=== PATIENT | female | born 1995 | race American Indian/Alaskan Native ===

== ENCOUNTER 2020-06-28 09:51 | Outpatient (CLI) | payer BC ==
[2020-06-28] MEDS ORDERED: LIDOCAINE (1%) 10 MG/1 ML VIAL 20 ML MDV ONE (12:17)
--- NOTE | 2020-06-28 14:26 | Ultrasound Report ---
Procedure: Ultrasound-guided right breast nodule biopsy x2 Clinical information/indication: Patient has 2 separate right breast nodules, one at the 11:00 positi on of the other near the 1:00 position, here for biopsy and clip placement Comparison: Right breast ultrasound from 06/19/2020 Procedure: The benefits, indications and risks were discussed with the patient including but not limi ally to bleeding, infection, hematoma formation, and inadequate tissue sampling. The patient agreed to proceed with both verbal and written consent. A timeout procedure was performed using 2 patient iden tifiers. The breast was prepped and draped in the usual sterile fashion. Lidocaine with and without epinephrin e were used for local anesthesia. Under direct ultrasound guidance, multiple core samples were obtain ed of each of the 2 separate breast nodules, one of which was at 11:00 and the other at 1:00. Biopsy markers were then placed. Biopsy device from each site was removed and hemostasis achieved with manua l pressure. A sterile dressing was applied to the skin. The patient tolerated the procedure without difficulty. No complications were encountered. Specimens were sent to pathology. The patient was then sent for a limited mammogram to confirm clip placement. IMPRESSION: 1. Technically successful right-sided breast biopsy of 2 separate nodules. 2. Post-procedure mammogram demonstrates satisfactory clip placement. An addendum will be issued once pathology returns on this procedure. Signer Name: Mayur José MD Signed: 06/28/2020 2:21 PM Workstation Name: [id number]
--- NOTE | 2020-06-29 07:31 | Ultrasound Report ---
Procedure: Ultrasound-guided right breast nodule biopsy x2 Clinical information/indication: Patient has 2 separate right breast nodules, one at the 11:00 positi on of the other near the 1:00 position, here for biopsy and clip placement Comparison: Right breast ultrasound from 06/19/2020 Procedure: The benefits, indications and risks were discussed with the patient including but not limi ally to bleeding, infection, hematoma formation, and inadequate tissue sampling. The patient agreed to proceed with both verbal and written consent. A timeout procedure was performed using 2 patient iden tifiers. The breast was prepped and draped in the usual sterile fashion. Lidocaine with and without epinephrin e were used for local anesthesia. Under direct ultrasound guidance, multiple core samples were obtain ed of each of the 2 separate breast nodules, one of which was at 11:00 and the other at 1:00. Biopsy markers were then placed. Biopsy device from each site was removed and hemostasis achieved with manua l pressure. A sterile dressing was applied to the skin. The patient tolerated the procedure without difficulty. No complications were encountered. Specimens were sent to pathology. The patient was then sent for a limited mammogram to confirm clip placement. IMPRESSION: 1. Technically successful right-sided breast biopsy of 2 separate nodules. 2. Post-procedure mammogram demonstrates satisfactory clip placement. An addendum will be issued once pathology returns on this procedure. Signer Name: Mayur José MD Signed: 06/28/2020 2:21 PM Workstation Name: [id number] Procedure: Ultrasound-guided right breast nodule biopsy x2 Clinical information/indication: Patient has 2 separate right breast nodules, one at the 11:00 positi on of the other near the 1:00 position, here for biopsy and clip placement Comparison: Right breast ultrasound from 06/19/2020 Procedure: The benefits, indications and risks were discussed with the patient including but not limi ally to bleeding, infection, hematoma formation, and inadequate tissue sampling. The patient agreed to proceed with both verbal and written consent. A timeout procedure was performed using 2 patient iden tifiers. The breast was prepped and draped in the usual sterile fashion. Lidocaine with and without epinephrin e were used for local anesthesia. Under direct ultrasound guidance, multiple core samples were obtain ed of each of the 2 separate breast nodules, one of which was at 11:00 and the other at 1:00. Biopsy markers were then placed. Biopsy device from each site was removed and hemostasis achieved with manua l pressure. A sterile dressing was applied to the skin. The patient tolerated the procedure without difficulty. No complications were encountered. Specimens were sent to pathology. The patient was then sent for a limited mammogram to confirm clip placement. IMPRESSION: 1. Technically successful right-sided breast biopsy of 2 separate nodules. 2. Post-procedure mammogram demonstrates satisfactory clip placement. An addendum will be issued once pathology returns on this procedure. Signer Name: Mayur José MD Signed: 06/29/2020 7:26 AM Workstation Name: [id number]
== END 2020-06-28 09:52 | disposition home or self-care (01) ==
LOC: US 09:51
PROVIDERS: ATTEND Surgery
DX: N63.11 Unspecified lump in the right breast, upper outer quadrant (principal); N63.12 Unspecified lump in the right breast, upper inner quadrant; R92.8 Other abnormal and inconclusive findings on diagnostic imaging of breast
CPT/HCPCS: 88305